=== PATIENT | male | born 1960 | race Caucasian/White ===

== ENCOUNTER 2020-03-08 10:32 | Inpatient (IN) ==
[2020-03-08] MEDS ORDERED: Furosemide 40 MG/4 ML VIAL IVP ONE (11:07)
[2020-03-08 11:17] LABS: Basophils # 0.1 K/mcL (0.0-0.2); Basophils % 0.4 %; Eosinophils # 0.2 K/mcL (0.0-0.6); Eosinophils % 1.2 %; Hematocrit 42.7 % (37.5-50.1); Immature Granulocytes % 0.6 % (0-4); Lymphocytes # 1.8 K/mcL (0.6-4.6); Lymphocytes % 14.3 %; Mean Corpuscular HGB Conc 30.4 g/dL (31.6-35.5); Mean Corpuscular Hemoglobin 30.1 pg (28.0-33.3); Mean Corpuscular Volume 98.8 fL (83.0-100.0); Mean Platelet Volume 12.4 fL (9.4-12.4); Monocytes # 0.8 K/mcL (0.0-1.3); Monocytes % 6.1 %; Platelet Count 116 K/mcL (140-400); Red Blood Count 4.32 M/mcL (4.19-5.50); Red Cell Distribution Width 13.2 % (11.5-14.5); Segmented Neutrophils % 77.4 %; White Blood Count 12.5 K/mcL (4.3-11.1)
[2020-03-08 11:19] LABS: Bilirubin,Urine Negative (Negative); Blood,Urine Trace-intact (Negative); Clarity,Urine Clear (Clear); Color,Urine Yellow (Yellow); Glucose,Urine (UA) 100 mg/dL (Normal); Ketones,Urine Negative (Negative); Leukocyte Esterase,Urine Negative (Negative); Nitrite,Urine Negative (Negative); PH,Urine 6.5 pH Units (5.0-8.0); Protein,Urine Negative (Neg-Trace); Specific Gravity,Urine 1.015 (1.010-1.025); Urobilinogen,Urine Normal (Normal)
[2020-03-08 11:29] LABS: Neutrophils # 9.7 K/mcL (1.6-8.9)
[2020-03-08 11:36] LABS: INR 1.1
[2020-03-08 11:39] LABS: RBC,Urine 0-3 per hpf (0-3); Squamous Epithelial Cell,Urine Few per hpf (None-Few)
[2020-03-08 11:44] LABS: Alanine Aminotransferase 17 Units/L (7-52); Albumin 4.2 g/dL (3.5-5.7); Albumin/Globulin Ratio 1.4 (1.1-2.2); Alkaline Phosphatase 71 Units/L (34-104); Aspartate Amino Transferase 17 Units/L (13-39); BUN/Creatinine Ratio 15 (6-26); Bilirubin,Total 0.9 mg/dL (0.3-1.0); Blood Urea Nitrogen 18 mg/dL (8-23); Calcium 9.7 mg/dL (8.6-10.3); Carbon Dioxide 41 mEq/L (23-29); Chloride 86 mEq/L (98-107); Globulin 3.1 g/dL (2.4-3.5); Glucose 306 mg/dL (70-105); Magnesium 1.8 mg/dL (1.6-2.6); Osmolality,Calculated 285 (280-300); Potassium 4.4 mEq/L (3.5-5.1); Sodium 131 mEq/L (136-145); Total Protein 7.3 g/dL (6.4-8.9); Troponin I 0.05 ng/mL (< 0.04); eGFR For African Americans > 60 (> 60); eGFR For Non-African Americans > 60 (> 60)
[2020-03-08] MEDS ORDERED: MOM Conc 10 ML UD.LIQ PO PRN (15:09)
[2020-03-08] MEDS ORDERED: Naloxone 0.4 MG/ML INJ IVP PRN (15:09)
[2020-03-08] MEDS ORDERED: Ondansetron ODT 4 MG TAB.RAPDIS SL PRN (15:09)
[2020-03-08] MEDS ORDERED: Acetaminophen 325 MG TABLET PO PRN (15:09)
[2020-03-08] MEDS ORDERED: Mag Hydrox/Al Hydrox/Simeth 30 ML UDC PO PRN (15:09)
[2020-03-08] MEDS ORDERED: Ondansetron 4 MG/2 ML VIAL IVP PRN (15:09)
[2020-03-08] MEDS ORDERED: Ipratropium/Albuterol Neb 3 ML IH PRN (15:16)
[2020-03-08] MEDS ORDERED: Nitroglycerin 0.4 MG TAB.SUBL SL PRN (15:44)
[2020-03-08] MEDS ORDERED: Dextrose Gel 15 GM/37.5 ML TUBE PO PRN ×2 (15:56)
[2020-03-08] MEDS ORDERED: *HR* Dextrose 50 % in Water (Vial) 50 ML VIAL IVP PRN (15:56)
[2020-03-08] MEDS ORDERED: D5% in Water 1,000 ML IVC PRN (15:56)
[2020-03-08] MEDS: MethylPREDNISolone 40 MG/ML VIAL IVP SCH (16:05)
[2020-03-08] MEDS: *HR* Enoxaparin 40 MG/0.4 ML SYRINGE SQ SCH (16:06)
[2020-03-08] MEDS: Magnesium Oxide 400 MG TABLET PO SCH ×2 (16:20→20:11)
[2020-03-08] MEDS: *HR* Metformin 500 MG TABLET PO SCH (16:20)
[2020-03-08] MEDS: Furosemide 40 MG/4 ML VIAL IVP SCH ×2 (16:21→19:14)
[2020-03-08] MEDS ORDERED: NON-FORMULARY MEDICATION 1 EACH EACH (Insulin Lispro [Humalog Kwikpen U-100] 5 UNIT) SQ SCH (16:30)
[2020-03-08] MEDS ORDERED: Insulin LISPRO 300 UNITS/3 ML VIAL SQ SCH ×2 (16:30→21:00)
[2020-03-08] MEDS: *HR* HYDROcodone/Acet 10/325 mg TABLET PO PRN (16:35)
[2020-03-08] MEDS: Ipratropium/Albuterol Neb 3 ML IH SCH ×2 (17:46→20:32)
[2020-03-08] MEDS: Nicotine 14 MG PATCH.TD24 TD SCH (20:07)
[2020-03-08] MEDS: Pregabalin 50 MG CAPSULE PO SCH (20:09)
[2020-03-08] MEDS: Temazepam 15 MG CAPSULE PO SCH (20:10)
[2020-03-08] MEDS: Vitamin E 200 UNIT (90MG) CAPSULE PO SCH (20:10)
[2020-03-08] MEDS: Cholecalciferol (D-3) 1,000 UNIT (25MCG) TABLET PO SCH (20:11)
[2020-03-08] MEDS: Budesonide/Formoterol 160/4.5 1 PUFF INH IH SCH (20:34)
[2020-03-08] MEDS: gemfibroziL 600 MG TABLET PO SCH (20:56)
[2020-03-08] MEDS ORDERED: Furosemide 40 MG/4 ML VIAL IVP SCH (21:00)
[2020-03-09] MEDS: *HR* HYDROcodone/Acet 10/325 mg TABLET PO PRN ×3 (03:27→16:30)
[2020-03-09] MEDS: Ipratropium/Albuterol Neb 3 ML IH SCH ×4 (03:27→22:22)
[2020-03-09] MEDS: *HR* Enoxaparin 40 MG/0.4 ML SYRINGE SQ SCH (05:27)
[2020-03-09 05:33] LABS: Hematocrit 38.7 % (37.5-50.1); Hemoglobin 11.9 g/dL (12.9-16.9); Mean Corpuscular HGB Conc 30.7 g/dL (31.6-35.5); Mean Corpuscular Hemoglobin 30.2 pg (28.0-33.3); Mean Corpuscular Volume 98.2 fL (83.0-100.0); Mean Platelet Volume 12.4 fL (9.4-12.4); Platelet Count 107 K/mcL (140-400); Red Blood Count 3.94 M/mcL (4.19-5.50); White Blood Count 13.8 K/mcL (4.3-11.1)
[2020-03-09 06:07] LABS: Alanine Aminotransferase 15 Units/L (7-52); Albumin 3.6 g/dL (3.5-5.7); Albumin/Globulin Ratio 1.3 (1.1-2.2); Alkaline Phosphatase 62 Units/L (34-104); Aspartate Amino Transferase 14 Units/L (13-39); BUN/Creatinine Ratio 23 (6-26); Bilirubin,Total 0.7 mg/dL (0.3-1.0); Blood Urea Nitrogen 30 mg/dL (8-23); Calcium 8.7 mg/dL (8.6-10.3); Carbon Dioxide 41 mEq/L (23-29); Chloride 85 mEq/L (98-107); Globulin 2.8 g/dL (2.4-3.5); Glucose 535 mg/dL (70-105); Magnesium 1.8 mg/dL (1.6-2.6); Osmolality,Calculated 302 (280-300); Phosphorous 2.9 mg/dL (2.7-4.5); Potassium 5.6 mEq/L (3.5-5.1); Sodium 131 mEq/L (136-145); Total Protein 6.4 g/dL (6.4-8.9); eGFR For African Americans > 60 (> 60); eGFR For Non-African Americans 56 (> 60)
[2020-03-09] MEDS ORDERED: Insulin Human Regular 10 UNIT in 0.9 % Sodium Chloride 10 ML IV ONE (06:15)
[2020-03-09] MEDS: Insulin LISPRO 300 UNITS/3 ML VIAL SQ SCH ×5 (06:49→20:25)
[2020-03-09] MEDS ORDERED: Nicotine 14 MG PATCH.TD24 TD SCH (09:00)
[2020-03-09] MEDS: Furosemide 40 MG/4 ML VIAL IVP SCH ×2 (09:03→19:59)
[2020-03-09] MEDS: *HR* Metformin 500 MG TABLET PO SCH ×2 (09:04→16:21)
[2020-03-09] MEDS: MethylPREDNISolone 40 MG/ML VIAL IVP SCH ×3 (09:04→16:22)
[2020-03-09] MEDS: Nicotine 14 MG PATCH.TD24 TD SCH (09:04)
[2020-03-09] MEDS: gemfibroziL 600 MG TABLET PO SCH ×2 (09:05→19:59)
[2020-03-09] MEDS: Magnesium Oxide 400 MG TABLET PO SCH ×3 (09:05→19:58)
[2020-03-09] MEDS: Pregabalin 50 MG CAPSULE PO SCH ×2 (09:05→19:58)
[2020-03-09] MEDS: Cholecalciferol (D-3) 1,000 UNIT (25MCG) TABLET PO SCH ×2 (09:05→19:57)
[2020-03-09] MEDS: Vitamin E 200 UNIT (90MG) CAPSULE PO SCH ×2 (09:05→19:56)
[2020-03-09] MEDS: Budesonide/Formoterol 160/4.5 1 PUFF INH IH SCH ×2 (10:34→22:24)
[2020-03-09] MEDS: Insulin DETEMIR 100 UNIT/ML X5UNITS SQ SCH (11:27)
[2020-03-09 15:47] LABS: BUN/Creatinine Ratio 26 (6-26); Blood Urea Nitrogen 35 mg/dL (8-23); Calcium 9.2 mg/dL (8.6-10.3); Chloride 85 mEq/L (98-107); Glucose 382 mg/dL (70-105); Osmolality,Calculated 298 (280-300); Potassium 4.8 mEq/L (3.5-5.1); Sodium 132 mEq/L (136-145); eGFR For African Americans > 60 (> 60); eGFR For Non-African Americans 53 (> 60)
[2020-03-09] MEDS: Temazepam 15 MG CAPSULE PO SCH (19:58)
[2020-03-10] MEDS: MethylPREDNISolone 40 MG/ML VIAL IVP SCH ×3 (00:25→17:03)
[2020-03-10] MEDS: *HR* HYDROcodone/Acet 10/325 mg TABLET PO PRN (00:26)
[2020-03-10] MEDS: *HR* Enoxaparin 40 MG/0.4 ML SYRINGE SQ SCH (05:07)
[2020-03-10 05:36] LABS: Hemoglobin 12.3 g/dL (12.9-16.9); Mean Corpuscular HGB Conc 30.8 g/dL (31.6-35.5); Mean Corpuscular Hemoglobin 30.1 pg (28.0-33.3); Mean Corpuscular Volume 97.8 fL (83.0-100.0); Mean Platelet Volume 12.4 fL (9.4-12.4); Platelet Count 111 K/mcL (140-400); Red Blood Count 4.09 M/mcL (4.19-5.50); Red Cell Distribution Width 13.4 % (11.5-14.5); White Blood Count 15.3 K/mcL (4.3-11.1)
[2020-03-10 06:00] LABS: Alanine Aminotransferase 14 Units/L (7-52); Albumin 3.8 g/dL (3.5-5.7); Albumin/Globulin Ratio 1.3 (1.1-2.2); Alkaline Phosphatase 63 Units/L (34-104); Aspartate Amino Transferase 11 Units/L (13-39); BUN/Creatinine Ratio 33 (6-26); Bilirubin,Total 0.5 mg/dL (0.3-1.0); Blood Urea Nitrogen 41 mg/dL (8-23); Calcium 9.6 mg/dL (8.6-10.3); Carbon Dioxide 42 mEq/L (23-29); Chloride 87 mEq/L (98-107); Glucose 408 mg/dL (70-105); Magnesium 1.9 mg/dL (1.6-2.6); Osmolality,Calculated 305 (280-300); Sodium 134 mEq/L (136-145); Total Protein 6.8 g/dL (6.4-8.9); eGFR For African Americans > 60 (> 60); eGFR For Non-African Americans 59 (> 60)
[2020-03-10] MEDS: Ipratropium/Albuterol Neb 3 ML IH SCH ×4 (07:33→23:33)
[2020-03-10] MEDS: Magnesium Oxide 400 MG TABLET PO SCH ×4 (09:25→20:34)
[2020-03-10] MEDS: Vitamin E 200 UNIT (90MG) CAPSULE PO SCH ×2 (09:25→20:33)
[2020-03-10] MEDS: Cholecalciferol (D-3) 1,000 UNIT (25MCG) TABLET PO SCH ×2 (09:25→20:31)
[2020-03-10] MEDS: *HR* Metformin 500 MG TABLET PO SCH (09:25)
[2020-03-10] MEDS: Furosemide 40 MG/4 ML VIAL IVP SCH (09:25)
[2020-03-10] MEDS: gemfibroziL 600 MG TABLET PO SCH ×2 (09:26→20:34)
[2020-03-10] MEDS: Pregabalin 50 MG CAPSULE PO SCH ×2 (09:26→20:33)
[2020-03-10] MEDS: Insulin DETEMIR 100 UNIT/ML X5UNITS SQ SCH ×2 (09:32→20:47)
[2020-03-10] MEDS: Nicotine 14 MG PATCH.TD24 TD SCH (09:32)
[2020-03-10] MEDS: Insulin LISPRO 300 UNITS/3 ML VIAL SQ SCH ×4 (09:32→20:41)
[2020-03-10] MEDS: Budesonide/Formoterol 160/4.5 1 PUFF INH IH SCH ×2 (09:40→23:33)
[2020-03-10 14:46] LABS: BUN/Creatinine Ratio 33 (6-26); Blood Urea Nitrogen 41 mg/dL (8-23); Calcium 9.6 mg/dL (8.6-10.3); Carbon Dioxide 35 mEq/L (23-29); Chloride 88 mEq/L (98-107); Glucose 382 mg/dL (70-105); Osmolality,Calculated 306 (280-300); Sodium 135 mEq/L (136-145); eGFR For African Americans > 60 (> 60); eGFR For Non-African Americans 59 (> 60)
[2020-03-10] MEDS: acetaZOLAMIDE 250 MG TABLET PO SCH (20:32)
[2020-03-10] MEDS: Temazepam 15 MG CAPSULE PO SCH (20:34)
[2020-03-10] MEDS: Furosemide 20 MG/2 ML VIAL IVP SCH (20:35)
[2020-03-11] MEDS: *HR* HYDROcodone/Acet 10/325 mg TABLET PO PRN ×4 (01:09→20:22)
[2020-03-11 05:06] LABS: Basophils % 0.1 %; Eosinophils % 0.1 %; Hematocrit 39.3 % (37.5-50.1); Immature Granulocytes % 0.4 % (0-4); Lymphocytes # 1.1 K/mcL (0.6-4.6); Lymphocytes % 7.3 %; Mean Corpuscular HGB Conc 30.5 g/dL (31.6-35.5); Mean Corpuscular Hemoglobin 30.2 pg (28.0-33.3); Mean Platelet Volume 11.7 fL (9.4-12.4); Monocytes # 0.9 K/mcL (0.0-1.3); Monocytes % 6.5 %; Neutrophils # 12.3 K/mcL (1.6-8.9); Platelet Count 107 K/mcL (140-400); Red Blood Count 3.97 M/mcL (4.19-5.50); Red Cell Distribution Width 13.5 % (11.5-14.5); Segmented Neutrophils % 85.6 %; White Blood Count 14.4 K/mcL (4.3-11.1)
[2020-03-11 05:16] LABS: Platelet Estimate Slight Decrease (Normal)
[2020-03-11 05:23] LABS: BUN/Creatinine Ratio 34 (6-26); Blood Urea Nitrogen 42 mg/dL (8-23); Calcium 9.5 mg/dL (8.6-10.3); Carbon Dioxide 39 mEq/L (23-29); Chloride 90 mEq/L (98-107); Glucose 498 mg/dL (70-105); Osmolality,Calculated 313 (280-300); Potassium 4.7 mEq/L (3.5-5.1); Sodium 135 mEq/L (136-145); eGFR For African Americans > 60 (> 60); eGFR For Non-African Americans 59 (> 60)
[2020-03-11] MEDS: Ipratropium/Albuterol Neb 3 ML IH SCH ×4 (06:27→22:00)
[2020-03-11] MEDS: *HR* Enoxaparin 40 MG/0.4 ML SYRINGE SQ SCH (06:29)
[2020-03-11] MEDS: MethylPREDNISolone 40 MG/ML VIAL IVP SCH (06:30)
[2020-03-11] MEDS: Vitamin E 200 UNIT (90MG) CAPSULE PO SCH ×2 (07:47→20:21)
[2020-03-11] MEDS: Cholecalciferol (D-3) 1,000 UNIT (25MCG) TABLET PO SCH ×2 (07:47→20:23)
[2020-03-11] MEDS: Furosemide 20 MG/2 ML VIAL IVP SCH (07:48)
[2020-03-11] MEDS: Magnesium Oxide 400 MG TABLET PO SCH ×4 (07:48→17:28)
[2020-03-11] MEDS: Pregabalin 50 MG CAPSULE PO SCH ×2 (07:48→20:21)
[2020-03-11] MEDS: acetaZOLAMIDE 250 MG TABLET PO SCH ×2 (07:48→20:20)
[2020-03-11] MEDS: gemfibroziL 600 MG TABLET PO SCH ×2 (07:48→20:23)
[2020-03-11] MEDS: Insulin LISPRO 300 UNITS/3 ML VIAL SQ SCH ×7 (07:48→20:25)
[2020-03-11] MEDS: Nicotine 14 MG PATCH.TD24 TD SCH (07:49)
[2020-03-11] MEDS: Insulin DETEMIR 100 UNIT/ML X5UNITS SQ SCH ×2 (07:49→20:24)
[2020-03-11 10:02] LABS: Carbon Dioxide 40 mEq/L (23-29)
[2020-03-11] MEDS: Budesonide/Formoterol 160/4.5 1 PUFF INH IH SCH ×2 (10:09→22:02)
[2020-03-11] MEDS: Furosemide 20 MG TABLET PO SCH (17:27)
[2020-03-11] MEDS: Temazepam 15 MG CAPSULE PO SCH (20:21)
[2020-03-12] MEDS: Ipratropium/Albuterol Neb 3 ML IH SCH ×2 (04:05→10:30)
[2020-03-12 05:28] LABS: Calcium 9.8 mg/dL (8.6-10.3); Potassium 4.8 mEq/L (3.5-5.1)
[2020-03-12] MEDS: *HR* HYDROcodone/Acet 10/325 mg TABLET PO PRN ×2 (05:57→14:21)
[2020-03-12] MEDS: *HR* Enoxaparin 40 MG/0.4 ML SYRINGE SQ SCH (05:58)
[2020-03-12] MEDS: Insulin LISPRO 300 UNITS/3 ML VIAL SQ SCH ×4 (07:57→11:51)
[2020-03-12] MEDS: Nicotine 14 MG PATCH.TD24 TD SCH (08:00)
[2020-03-12] MEDS: Vitamin E 200 UNIT (90MG) CAPSULE PO SCH (08:01)
[2020-03-12] MEDS: Magnesium Oxide 400 MG TABLET PO SCH ×2 (08:02→14:20)
[2020-03-12] MEDS: Pregabalin 50 MG CAPSULE PO SCH (08:02)
[2020-03-12] MEDS: gemfibroziL 600 MG TABLET PO SCH (08:02)
[2020-03-12] MEDS: Cholecalciferol (D-3) 1,000 UNIT (25MCG) TABLET PO SCH (08:02)
[2020-03-12] MEDS: acetaZOLAMIDE 250 MG TABLET PO SCH (08:02)
[2020-03-12] MEDS: Furosemide 20 MG TABLET PO SCH (08:02)
[2020-03-12] MEDS ORDERED: MethylPREDNISolone 40 MG/ML VIAL IVP SCH (09:00)
[2020-03-12] MEDS: Insulin DETEMIR 100 UNIT/ML X5UNITS SQ SCH (10:02)
[2020-03-12] MEDS: Budesonide/Formoterol 160/4.5 1 PUFF INH IH SCH (10:28)
[2020-03-12 10:51] VITALS: BP 122/81
== END 2020-03-12 14:32 | disposition home or self-care (01) | DRG 291 ==
LOC: EMEROOGRE 10:32 → INPGRE 10:32
PROVIDERS: ADMIT Family Medicine; ATTEND Family Medicine